=== PATIENT | male | born 1955 ===

== ENCOUNTER 2019-11-10 08:44 | Emergency (ER) | payer BC, SELFPAY ==
[2019-11-10 09:20] VITALS: BP 153/88; PULSE 113; RESP 18; TEMP 37.3; O2SAT 100
--- NOTE | 2019-11-10 09:41 | ED.EYEPROB ---
HPI - Eye Problem General Stated complaint: eye problems Time Seen by Provider: 11/10/19 09:41 Source: patient and RN notes reviewed Mode of arrival: ambulatory Limitations: no limitations History of Present Illness HPI Narrative: 63 old male with history of hypertension presents with concern for swollen left upper eyelid for several days. Reports occasional small amount of crusty drainage, denies that it was crusted shut when he woke up this morning. Reports the eyelid had been slightly tender, is no longer tender. Denies any rhinorrhea, congestion, cough, fever, vision changes, blurry vision. chief complaint: eye redness Related Data Allergies Allergy/AdvReac Type Severity Reaction Status Date / Time No Known Allergies Allergy Unverified 12/07/18 11:25 Review of Systems Review of Systems: Narrative: CONSTITUTIONAL: Denies malaise, chills, sweats, or fever. EYES: Denies visual changes, redness. Reports left upper eyelid swelling, occasional discharge. ENT: Denies rhinorrhea, congestion, sinus pain, otalgia or sore throat. CARDIOVASCULAR: Denies chest pain, palpitations, or edema. RESPIRATORY: Denies cough or dyspnea. SKIN: Denies rash or itching. MUSCULOSKELETAL: Denies myalgia. NEUROLOGIC: Denies headache. All systems reviewed & are unremarkable except as noted in HPI and below PMFSH Comments At time of signature, agree with nursing past medical, surgical, social and family history. There is no relevant family history pertinent to the presenting complaint Exam Narrative: Exam Narrative: GENERAL: Well-appearing, well-nourished, and in no acute distress. HEAD: Normocephalic, atraumatic. EYES: PERRLA, conjunctivae clear, sclera clear and EOMI. No nystagmus. Left upper eyelid edematous with hordeolum noted, small amount of crust noted on eyelashes ENT: Nares clear, turbinates pink, no rhinorrhea or epistaxis. Mucous membranes moist. TM pearly rodas with sharp light reflex bilaterally; no tragal tenderness. Oropharynx without erythema or lesions. Tonsils not enlarged and without exudate. NECK: Supple. CHEST: No respiratory distress. Speaks in full sentences. HEART: Regular rate and rhythm. SKIN: Warm, dry, no rash. NEURO: Alert and oriented x3. PSYCH: Normal mood and affect Course Course Emergency Course: Patient is aware of diagnosis, understands and agrees to treatment plan. Anticipatory guidance given. Patient agrees to follow-up as directed and is aware of reasons to seek care at the emergency department. Portions of this record may have been created with voice recognition software Vital Signs Vital signs: Vital Signs Temperature 99.1 F 11/10/19 09:20 Pulse Rate 113 H 11/10/19 09:20 Respiratory Rate 18 11/10/19 09:20 Blood Pressure 153/88 H 11/10/19 09:20 Pulse Oximetry 100 11/10/19 09:20 Temperature 99.1 F 11/10/19 09:20 Pulse Rate 113 H 11/10/19 09:20 Respiratory Rate 18 11/10/19 09:20 Blood Pressure 153/88 H 11/10/19 09:20 Pulse Oximetry 100 11/10/19 09:20 Reviewed. MDM - Eye Problem MDM Narrative Medical decision making narrative: Consideration of the following conditions may be warranted for the presenting problem, they are not final diagnoses: Bacterial conjunctivitis, allergic conjunctivitis, viral conjunctivitis, foreign body, blepharitis, chalazion, hordeolum, corneal abrasion. Exam findings show no acute concerns or changes; patient is non-toxic appearing and is in no distress. Patient is appropriate for outpatient treatment and follow-up. Critical Care Time Critical Care Time Critical Care Time: No Discharge Plan Discharge Clinical Impression: Hordeolum Qualifiers: Hordeolum type: unspecified type Laterality: left Eyelid: upper Qualified Code(s): H00.014 - Hordeolum externum left upper eyelid Patient Disposition: Home, Self-Care Condition: Stable Instructions: Juan Carlos (ED) Additional Instructions: Do not touch or rub your eye. Use a warm was
== END 2019-11-10 09:58 | disposition home or self-care (01) ==
PROVIDERS: Emergency Provider Nurse Practitioner; PCP Family Medicine Adolescent Medicine
DX: H00.014 Hordeolum externum left upper eyelid (principal); I10 Essential (primary) hypertension
CPT/HCPCS: 99213; G0463

== ENCOUNTER 2020-08-11 08:03 | Emergency (ER) | payer BC, SELFPAY ==
[2020-08-11 08:11] VITALS: BP 168/87; PULSE 107; RESP 12; TEMP 37.1; O2SAT 99
[2020-08-11 08:14] VITALS: BP 168/87; PULSE 107; RESP 12; TEMP 37.1; O2SAT 99
--- NOTE | 2020-08-11 08:29 | ED.EYEPROB ---
HPI - Eye Problem General Chief complaint: Eye Problems Stated complaint: eye irritation Time Seen by Provider: 08/11/20 08:12 Source: patient and RN notes reviewed Mode of arrival: ambulatory Limitations: no limitations History of Present Illness HPI Narrative: Patient presents today complaining of left eye itching and redness since yesterday. States a bug flew into his eye yesterday while he was mowing grass and he rubbed it. Denies any current pain, vision changes. Reports he showed up to work today and was told to come in for evaluation because his eye was red, and states he did not know anything was wrong with his eye until that time. States he used some [id number] eyedrops and reports it did help with some redness. MD chief complaint: eye redness Related Data Home Medications Medication Instructions Recorded Confirmed amlodipine 10 mg PO DAILY 11/10/19 08/11/20 Allergies Allergy/AdvReac Type Severity Reaction Status Date / Time No Known Allergies Allergy Unverified 08/11/20 08:13 Review of Systems Review of Systems: Narrative: CONSTITUTIONAL: Denies body aches, fever, chills, or sweats. EYES: Denies visual changes, or discharge. + Left eye redness and itching ENT: Denies rhinorrhea, congestion, sore throat, or otalgia. CARDIOVASCULAR: Denies chest pain, palpitations, or edema. RESPIRATORY: Denies cough or dyspnea. GASTROINTESTINAL: Denies abdominal pain, nausea, vomiting, or diarrhea. GENITOURINARY: Denies dysuria or hematuria. SKIN: Denies rash, itching, or wounds. MUSCULOSKELETAL: Denies back pain, joint pain, or myalgia. NEUROLOGIC: Denies headache, numbness, tingling, or weakness. PSYCH: Denies depression or anxiety. [facility] Past Medical History Medical History (Updated 08/11/20 @ 09:00 by Jami Hallman, POST OFFICE CLERK, ) Hypertension Comments At time of signature, I have reviewed and agree with nursing past medical, surgical, social and family history unless otherwise noted. Please see nursing chart for further information. There is no relevant family history pertinent to the presenting complaint Exam Narrative: Exam Narrative: GENERAL: Well-appearing, well-nourished, and in no acute distress. HEAD: Normocephalic, atraumatic. EYES: EOMI. PERRL. Right eye normal. Lids and lashes normal bilaterally. Left eye: Conjunctiva is injected with mild chemosis. No drainage from the left eye. Procedure note for eye exam. ENT: Mucous membranes pink and moist. Nares clear. No rhinorrhea. TMs normal bilaterally. Throat normal. Uvula midline. NECK: Normal AROM. CHEST: No respiratory distress. EXTREMITIES: Normal range of motion. No edema. SKIN: Warm, dry, no rash. Capillary refill normal. Normal skin turgor. NEURO: No focal deficits. Alert and oriented x3. Gait steady. PSYCH: Normal affect. No signs of depression or anxiety. Course Vital Signs Vital signs: Vital Signs Temperature 98.8 F 08/11/20 08:11 Pulse Rate 107 H 08/11/20 08:11 Respiratory Rate 12 08/11/20 08:11 Blood Pressure 168/87 H 08/11/20 08:11 Pulse Oximetry 99 08/11/20 08:11 Temperature 98.8 F 08/11/20 08:14 Pulse Rate 107 H 08/11/20 08:14 Respiratory Rate 12 08/11/20 08:14 Blood Pressure 168/87 H 08/11/20 08:14 Pulse Oximetry 99 08/11/20 08:14 Reviewed. Pt has been instructed to follow up with his PCP regarding his elevated blood pressure today. Procedures Other Procedure Procedure 1: Other Procedure: Left eye was anesthetized with 1 drop of tetracaine and anesthesia was achieved. The eye was flushed with eye wash. Lid was inverted and examined. Moistened Qtip was used to sweep underneath the upper eyelid with [0] foreign bodies resulting. Cornea was dyed with fluorescein and [0] abrasions or ulcerations were noted. Pt tolerated procedure well. MDM - Eye Problem Differential Diagnosis Differential diagnosis: Likely corneal abrasion, conjunctivitis, periorbital cellulitis, subco
== END 2020-08-11 08:34 | disposition home or self-care (01) ==
PROVIDERS: Emergency Provider Nurse Practitioner; PCP Family Medicine Adolescent Medicine
DX: H10.12 Acute atopic conjunctivitis, left eye (principal); I10 Essential (primary) hypertension
CPT/HCPCS: 99213; G0463

== ENCOUNTER 2021-03-25 07:51 | Outpatient (CLI) | payer BC, SELFPAY ==
[2021-03-25 08:53] LABS: Anion Gap 9 mmol/L (8-16); Blood Urea Nitrogen 12 mg/dL (9-20); Calcium 9.6 mg/dL (8.4-10.2); Carbon Dioxide 35 mmol/L (22-30); Chloride 99 mmol/L (98-107); Estimated Glomerular Filt Rate > 60; Glucose 103 mg/dL (65-110); Potassium 3.3 mmol/L (3.4-5.0); Sodium 143 mmol/L (137-145)
== END 2021-03-25 07:52 | disposition home or self-care (01) ==
LOC: ANHSURGERY 07:56
PROVIDERS: Anesthesiology; PCP Family Medicine Adolescent Medicine; Visit Provider Plastic Surgery
DX: Z51.81 Encounter for therapeutic drug level monitoring (principal); Z79.899 Other long term (current) drug therapy; Z01.818 Encounter for other preprocedural examination
CPT/HCPCS: 36415; 80048

== ENCOUNTER 2021-04-01 00:03 | Day surgery (SDC) | payer BC, SELFPAY ==
[2021-03-19 08:47] VITALS: BMI 26.6
--- NOTE | 2021-03-19 08:55 | PC.NURSE ---
Report to the Outpatient Waiting Room, entrance under the green pavilion located off [facility], at time ___6:00AM____ on date __04/01/21 . OR Time: __7:30AM . - You and your visitor will be asked a series of questions to screen for COVID 19 for your protection. - A mask is required within the hospital. - Only one visitor is allowed at this time. Patient visitors will be guided where to wait when not with patient. Preoperative COVID Testing Requirements: No COVID Test needed if: (proof is required; if not received patient will have Rapid Test prior to entry) - Patient has received COVID Vaccine at least 14 days prior to procedure date or - Patient has positive COVID test result within last 90 days of surgery date. COVID Test needed if above criteria is not met If not COVID vaccinated a COVID test must be conducted within 72 hours of surgery and patient is asked to isolate self from time of testing until procedure. You will go to the [facility] for your COVID testing. The [facility] Testing site is located at the corner of [address] from [facility]. You will only be called if COVID results are positive and your surgeon may reschedule your elective surgery date. Patients may have clear liquids (water, carbonated beverages, clear teas, apple juice) until 3 hours prior to surgery with a maximum of 20 ounces. - No food from midnight until time of surgery 4:30AM - Infants may have breast milk until 4 hours before surgery, formula 6 hours prior to surgery. - Children will be allowed to drink immediately following surgery. If applicable, please bring a bottle or sippy cup to assist with drinking. Juice, water, soda, and popsicles are readily available. For infants on formula, please bring formula the day of surgery. Pacifiers are allowed. Take the following medications with a SIP of water the morning of surgery: __AMLODIPINE Medications to discontinue per physician ALL VITAMINS/SUPPLEMENT Date to take last dose 03/28/21 Please no make-up, nail upper sorbian, hairspray, perfume, deodorant, or body powder the day of surgery. No jewelry (including any body piercings) or valuables the day of surgery, leave them at home. Please take a shower or bath the night before, or the morning of, surgery with an antibacterial soap. Wear comfortable, loose fitting clothing. Children are encouraged to wear pajamas. - Jewelry must be removed prior to entering the operating room. Rings and piercings that are not removed may be cut off. - The hospital will not accept responsibility for valuables. - Please leave all valuables, including medications, at home the day of surgery. If you are going home after surgery, a licensed snaker tractor driver must drive you home. - NO public transportation without another adult. - We recommend that an adult stay with you for 24 hours following discharge. - We also recommend that you do not drive, make important decision, drink alcoholic beverages, or take any drugs that were not prescribed by your health care provider for at least 24 hours after your discharge time. For Pediatric surgeries, we recommend two adults accompany the child home (only one inside the building at this time). Follow any additional instructions given to you from your surgeon. Telephone instructions given to ___PATIENT and asked if any additional questions and then verbalized understanding. Patient advised to call surgeon office or pre surgery nurse liaison [phone] if any additional questions.
[2021-04-01 06:30] VITALS: BP 159/86; PULSE 93; RESP 16; TEMP 36.8; O2SAT 100
[2021-04-01] MEDS: LACTATED RINGERS 1,000 ML 30 ML IV CONT (06:30)
--- NOTE | 2021-04-01 06:55 | P.PNAN_ITS ---
Anes - Initial Pre Proc Eval Procedure: Operation Date: 04/01/21 07:30 Proposed Procedures p Excision of Recurrent Ganglion Cyst of Right Dorsal First Web Space - Tolu Muse MD Date/Time: 04/01/21 06:55 Surgeon: Tolu Muse MD Pre Op Diagnosis: subcutaneous mass recurrent rt dorsal first web sp Patient Data Age: 65 Gender: M Height: 1.75 m Weight: 82 kg Allergies Allergy/AdvReac Type Severity Reaction Status Date / Time No Known Allergies Allergy Unverified 03/19/21 08:41 Home Medications Medication Instructions Recorded Confirmed Type amlodipine 10 mg PO QAM 11/10/19 03/19/21 History atorvastatin 20 mg PO HS 03/19/21 03/19/21 History multivitamin [Multiple Vitamins] 1 tablet PO DAILY 03/19/21 03/19/21 History valsartan-hydrochlorothiazide 1 tablet PO QAM 03/19/21 03/19/21 History Patient hx anesthesia problems: none Family hx anesthesia problems: none Results Review: All pre-operative results and documents have been reviewed as part of the pre-operative evaluation. [facility], [facility] Past Medical History Medical History Hyperlipidemia Hypertension Social History Social History Smoking status: Never smoker Alcohol intake: never Substance use: never Living arrangements: with family Additional living arrangements comments: Spiritual care concerns: No Anes - Eval Final PreProcedure Day of Procedure 04/01/21 06:55 Patient weight: overweight Heart: regular rate and rhythm Lungs: clear to auscultation Airway: Mallampati scale class II Neurological: alert and oriented ASA classification: II Emergent: no Anesthetic plan: proceed Anesthesia type and monitoring: general GIVS and standard monitoring Results Review: All pre-operative results and documents have been reviewed as part of the pre-operative evaluation. Informed Consent: The patient's anesthetic plan and its attendant risks and benefits were discussed with the patient/family/POA. Questions were solicited and answers provided to the satisfaction of the patient/family/POA.
--- NOTE | 2021-04-01 07:14 | WPDHPUPDATE1 ---
History and Physical Update Update Date/Time: 04/01/21 07:14 History and Physical has been reviewed, including an updated exam of the patient. There are NO changes in the patient's condition. Risks, benefits, and alternatives have been discussed and questions answered. Patient agrees to proceed with procedure.
[2021-04-01] MEDS: LIDO 1%/EPINEPHRINE/PF 1:200,000 30 ML VIAL XX (07:40)
[2021-04-01 08:24] VITALS: BP 113/74; PULSE 80; RESP 12; O2SAT 97
--- NOTE | 2021-04-01 08:45 | W.PM.PROC2 ---
Procedure Note - Detailed Date of Procedure 04/01/21 Pre-op Diagnosis subcutaneous mass recurrent rt dorsal first web sp Post-op Diagnosis other (Recurrent ganglion cyst right dorsal first web space.) Procedure Performed Excision of recurrent ganglion cyst a right dorsal 1st webspace Surgeon Tolu Muse MD Anesthesia MAC Findings Ganglion cyst Description of Procedure The site on the right dorsal hand was marked on the patient while in the holding area. He was taken to the operating room and placed supine on the operating table. His hand was supported on a hand board. Time-out was held and confirmed. He was given IV sedation. The extremity was prepped and draped in usual fashion. The site was remarked for incision and locally infiltrated with 1% lidocaine with epinephrine. The tourniquet was inflated to 250 mmHg. The incision was made as marked and the dissection was carried bluntly through the subcutaneous tissue and through scar to identify neurovascular structures. These were identified and held out of the way. The cyst was readily identified. The cyst was partially encased in thin scar tissue and this was divided primarily by blunt dissection. We followed the cyst down to its origin where it easily avulsed. This lay alongside the dorsal branch of the radial nerve. Holding that out of the way we were able to cauterize the loose connective tissue around the base and some Surgicel was placed into that site. The tourniquet was released. There was no significant bleeding. The wound was closed with 4-0 Monocryl suture in a running intradermal fashion. Small bandage with Coban wrap was applied and he is discharged with instructions in wound care and follow-up. He has a prescription for hydrocodone 5/325 6. Estimated Blood Loss -3.0 Tourniquet Time 26 Drains No Packing No Pathology none sent Condition stable Disposition same day
[2021-04-01 08:50] VITALS: BP 139/75; PULSE 75; RESP 14
[2021-04-01 09:15] VITALS: BP 106/71; PULSE 77; RESP 20
== END 2021-04-01 09:21 | disposition home or self-care (01) ==
PROVIDERS: PCP Family Medicine Adolescent Medicine; Visit Provider Plastic Surgery
PROC: (CPT 26160; principal; 2021-04-01 07:30)
DX: M67.441 Ganglion, right hand (principal); I10 Essential (primary) hypertension; E78.5 Hyperlipidemia, unspecified
CPT/HCPCS: 26160; 36415; 80048; A9270; J2250; J2405; J2704; J3010; J7120